=== PATIENT | male | born 1980 | race Caucasian/White ===

== ENCOUNTER 2023-12-09 04:18 | Emergency (ER) | payer BC, SELFPAY ==
[2023-12-09 04:21] VITALS: BP 149/80
[2023-12-09 04:53] VITALS: BP 121/87; BMI 24.1
--- NOTE | 2023-12-09 04:54 | EDRN ---
Pt accompanied by his fiance. Pt says he is here with symptoms of vertigo. Pt has dizziness for which he has been taking dramamine which he says helps. Last dose was 0300. Pt had a headache earlier. Pt does not have nausea now but vomited
yesterday and was unable to stand because of the dizziness. Pt has bilateral ear pressure, photophobia and chills. Pt denies cp, sob, abd pain. Pt has had problems with vertigo September, October and November which has kept him out of work.
[2023-12-09 05:00] VITALS: BP 110/80
[2023-12-09] MEDS: VALIUM INJECTION 2 MG IV (05:34)
[2023-12-09 05:39] LABS: % Basophils 0.5 % (0-2); % Eosinophils 4.3 % (0-6); % Immature Granulocytes 0.2 % (0-0.5); % Lymphocytes 32.4 % (20.5-51.1); % Monocytes 10.5 % (1.7-9.3); % Neutrophils 52.1 % (42.2-75.2); Absolute Eosinophils 0.3 10^3/uL (0-0.7); Absolute Lymphocytes 1.9 10^3/uL (1.2-3.4); Absolute Monocytes 0.6 10^3/uL (0.1-0.6); Hematocrit 41.9 % (39.0-52.0); Mean Corp Hgb Conc. 35.8 g/dL (33.0-37.0); Mean Corpuscular Hgb 30.9 pg (27.0-31.0); Mean Corpuscular Volume 86.2 fL (80.0-94.0); Mean Platelet Volume 8.8 fL (7.4-10.4); Nucleated Red Blood Cells % 0 % (-); Platelet Count 190 10^3/uL (130-400); Red Blood Cell Count 4.86 10^6/uL (4.70-6.10); Red Cell Dist. Width 12.3 % (11.5-14.5); White Blood Cell Count 5.8 10^3/uL (4.8-10.8)
[2023-12-09 06:00] VITALS: BP 126/87
[2023-12-09 06:07] LABS: ALT (SGPT) 19 U/L (0-50); AST (SGOT) 29 U/L (17-59); Albumin 3.9 g/dl (3.5-5.0); Alkaline Phosphatase 77 U/L (38-126); Blood Urea Nitrogen 16 mg/dl (9-20); Calcium 9.1 mg/dl (8.4-10.2); Carbon Dioxide 27 mmol/L (22-30); Chloride 102 mmol/L (98-107); Estimated Creatinine Clearance 117 ml/min; Glucose 101 mg/dl (70-99); Potassium 4.3 mmol/L (3.5-5.1); Sodium 136 mmol/L (135-145); Total Bilirubin 0.7 mg/dl (0.2-1.3); Total Protein 6.7 g/dl (6.3-8.2); eGFR > 60.00
--- NOTE | 2023-12-09 06:35 | ED.GENMED ---
History of Present Illness
General
Chief Complaint: Dizziness
Source: patient and spouse
Exam Limitations: none
Time Seen by Provider: 12/09/23 05:12
Nursing documentation reviewed up to this point in time: agreed with
Travel History
Have you had any contact with someone who has COVID-19?: No
Do you have any symptoms of coronavirus? Fever > 100 degrees, chills, cough, shortness of breath, sore throat, loss of taste or smell, muscle aches, or headache?: No
History of Present Illness
History of Present Illness:
43-year-old male with a past medical history of hypertension, vertigo who presents to the emergency department accompanied by his for evaluation of dizziness�'I have vertigo.' Patient says that he had onset of symptoms yesterday morning and
have been constant for the past 24 hours. He says that he has had room spinning sensation associated with intense nausea. He says his symptoms are much worse when he moves his head or tries to walk around. He tried meclizine without much relief.
Came to the emergency room for assessment. He does report he has had identical symptoms many times in the past. He has done vestibular rehab and has had success with Titus maneuver in the past but says that he is too symptomatic to try this at
present. He does state he has had some fullness in his ears bilaterally over the past few days he thinks related to allergies. He denies any focal weakness or numbness in his extremities, change in speech, or any other neurologic complaints.
Denies any fall or head trauma.
Past History
Past History
ED Past Medical History: Psychiatric and Other (Multiple concussions)
ED Past Surgical History: None
Social History
Personal:
Living: with family
Employment: Employed
Review of Systems
Review of Systems
All Other Systems: ROS reviewed and negative except as documented in HPI and ROS
Constitutional: Denies fever or chills
EENT: Reports other (Congestion); Denies sore throat
Respiratory: Denies cough or trouble breathing
Cardiac: Denies chest pain or palpitations
ABD/GI: Reports nausea; Denies abdominal pain or vomiting
: Denies flank pain
Musculoskeletal: Denies neck pain or back pain
Neurological: Reports dizzy; Denies headache, weakness or numbness
Phy Exam
Physical Exam
Physical Exam:
General: Awake, alert, oriented x3; no acute distress
Head: Normocephalic, atraumatic
Eyes: Conjunctiva normal, EOMI�he does have rightward fatigable nystagmus, no leftward nystagmus, no vertical or rotary nystagmus
Ears: TMs clear bilaterally
Throat: Airway intact, handling secretions
Neck: Trachea midline, supple without meningismus
Lungs: Clear to auscultation bilaterally, no wheezing, rales, rhonchi
Heart: Regular rate and rhythm, no murmurs, gallops, or rubs
Abd: Soft, non distended, nontender
Neuro: Cranial nerves intact 2 through 12, speech fluent without dysarthria or aphasia, no limb ataxia, motor and sensory function intact and symmetric upper and lower extremities
Skin: no rash
Extremities: No edema in extremities, warm and well-perfused
Scores
Heart Failure Risk
Heart Failure Risk Score: Not Applicable
Heart Score for Chest Pain Patients
STEMI patient?: Not applicable
Withdrawal Assessment of Alcohol
Withdrawal Assessment Completed?: Not applicable
Course
Orders/Labs/Results
Orders:
Orders
12/09/23 05:25
Electrocardiogram (*1) Urgent
Reason for Study: Vertigo / Dizzy
EKG- Treatment ONCE
diazePAM [Valium Injection] 2 mg IV NOW STA
12/09/23 05:31
Complete Blood Count/With Diff Urgent
Comprehensive Metabolic Panel Urgent
Abnormal Lab Results
12/09/23
05:31
Monocytes % 10.5 H %
(1.7-9.3)
Glucose 101 H mg/dl
(70-99)
12/09/23 05:31
12/09/23 05:31
Vital Signs
Initial and Last Documented VS:
Initial Vital Signs
Temp Pulse Resp BP Pulse Ox
36.6 C 75 16 149/80 97
12/09/23 04:21 12/09/23 04:21 12/09/23 04:21 12/09/23 04:21 12/09/23 04:21
Last Documented Vital Signs
Temp Pulse Resp BP Pulse Ox
36.6 C 68 12 126/87 97
12/09/23 04:21 12/09/23 06:00 12/09/23 06:00 12/09/23 06:00 12/09/23 04:21
MDM/Problems Addressed
Differential Diagnosis Includes:
History and exam consistent with peripheral vertigo with differential including but not limited to BPPV, M�ni�re's disease, labyrinthitis
MDM/Problems Addressed:
43-year-old male presents to the emergency room for evaluation of vertiginous symptoms over the past 24 hours similar to prior episodes of vertigo. Did not have significant improvement with meclizine and so he came to the emergency room for
assessment. Mildly hypertensive in triage normalized by my assessment, rest of vitals normal. Exam as above. He has no other neurologic signs or symptoms to suggest central vertigo and has unidirectional nystagmus consistent with vertigo.
Furthermore he has had some fullness in his ears and congestion over the past few days which likely serves as a trigger. Will check basic labs and an EKG. Will treat symptomatically with Valium. Monitor closely reassess after the above.
Labs reviewed: CBC and CMP unremarkable. EKG sinus rhythm. Clinical reassessment after Valium patient with significant improvement. He was able to ambulate around the room with only very mild symptoms. I think he is stable for discharge at this
point in time. Will prescribe some Valium short-term for symptom relief beyond meclizine. Will also prescribe some Flonase for his recent congestion and ear fullness. Will refer to ENT for follow-up. He feels comfortable with this plan. Spoke
about return precautions all questions answered.
Acute Exacerbation and/or Progression of Chronic Illness:
Acutely hypertensive resolved without intervention continue to monitor but no additional antihypertensive indicated at present
Acute Exacerbation and/or Progression of Chronic Illness: HTN
*Pulse Oximetry
Patient hypoxic: no
*EKG
Interpreted by ED Provider?: Yes
Heart Rate: 67
Rate: normal
Rhythm: sinus
[place]: normal axis
Interval: normal interval
QRS Pattern: normal QRS
Ischemia: no ischemia
*Critical Care Note
Total Time (30-74mins, 75-104mins- exclusive of procedures): Not Applicable
Data Reviewed
Source: patient and spouse
ED Attending Note
-
Portions of this chart may have been created with voice recognition software.� Occasional wrong word or��sound alike� substitutions may have occurred due to the inherent limitations of voice recognition software.
Discharge Plan
Departure
Patient Disposition: Home (Routine Discharge)
Date of Disposition: 12/09/23
Time of Disposition: 06:30
Patient with high blood pressure during this ER visit?: Yes
Discharge Problem:
Vertigo
Instructions: Vertigo (a Type of Dizziness) (DC)
Prescriptions:
New
diazepam [Valium] 2 mg tablet
2 mg PO TID PRN (Reason: dizziness) Qty: 10 0RF
fluticasone propionate [Flonase Allergy Relief] 50 mcg/actuation spray,suspension
1 spray intranasal DAILY Qty: 16 0RF
No Action
losartan 50 mg Tablet
50 mg PO DAILY
escitalopram oxalate [Lexapro] 20 mg Tablet
20 mg PO DAILY
Referrals:
Iron Oconnor MD [Active] - Call in 1-3 days for appt (ENT)
Kayla Sanon MD [Family Provider] - Follow up in 5-7 days
Activity Restrictions/Additional Instructions:
Thank you for visiting the Emergency Department at [facility].
1. Please schedule a follow up appointment as directed. Call first thing tomorrow morning to make an appointment.
2. If indicated, please take your medications as instructed and indicated on discharge paperwork.
3. If any of your symptoms do not improve, or persist, or become more severe within 6-12 hours, please return to the emergency department for further care.
4. Please return to the emergency department if you develop a headache, neck pain/stiffness, fever greater than 100.4F, chest pain, shortness of breath, persistent nausea, vomiting, slurred speech, difficulty walking, numbness/tingling, weakness,
signs of infection or any other symptoms that are worrisome to you.
Please call [phone] if you have any questions.
Interventions
Interventions:
*Risk Screen - Suicide Last Done: 12/09/23 04:21
*General Assessment Last Done: 12/09/23 04:21
*Neglect/Abuse Screening Last Done: 12/09/23 04:21
*ED COVID-19 Vaccine History Last Done: 12/09/23 04:53
ED- Neurological Assessment Last Done: 12/09/23 04:53
ED- Cardiac Assessment Last Done: 12/09/23 04:53
Discharge Date and Time
Print Language: NICARAGUAN
== END 2023-12-09 06:44 | disposition home or self-care (01) ==
LOC: EMR 04:18
PROVIDERS: EMERGENCY PHYSICIAN Emergency Medicine; FAMILY PHYSICIAN Student in an Organized Health Care Education/Training Program
DX: R42 Dizziness and giddiness (principal); I10 Essential (primary) hypertension
CPT/HCPCS: 99283; 96374; 80053; 85025; 93005

== ENCOUNTER 2024-02-01 05:06 | Emergency (ER) | payer BC, SELFPAY ==
[2024-02-01 05:09] VITALS: BP 161/111
[2024-02-01 05:20] LABS: Glucose - Point of Care 128 mg/dl (70-99)
[2024-02-01 05:37] VITALS: BP 146/110
[2024-02-01 05:48] LABS: % Basophils 0.5 % (0-2); % Eosinophils 2.2 % (0-6); % Immature Granulocytes 0.4 % (0-0.5); % Lymphocytes 14.1 % (20.5-51.1); % Monocytes 8.3 % (1.7-9.3); % Neutrophils 74.5 % (42.2-75.2); Absolute Basophils 0.1 10^3/uL (0-0.2); Absolute Eosinophils 0.2 10^3/uL (0-0.7); Absolute Lymphocytes 1.6 10^3/uL (1.2-3.4); Absolute Monocytes 0.9 10^3/uL (0.1-0.6); Absolute Neutrophils 8.2 10^3/uL (1.4-6.5); Hematocrit 45.1 % (39.0-52.0); Hemoglobin 15.7 g/dL (13.0-18.0); Mean Corp Hgb Conc. 34.8 g/dL (33.0-37.0); Mean Corpuscular Hgb 30.5 pg (27.0-31.0); Mean Corpuscular Volume 87.7 fL (80.0-94.0); Mean Platelet Volume 9.3 fL (7.4-10.4); Nucleated Red Blood Cells % 0 % (-); Platelet Count 235 10^3/uL (130-400); Red Blood Cell Count 5.14 10^6/uL (4.70-6.10); Red Cell Dist. Width 12.1 % (11.5-14.5); White Blood Cell Count 11.1 10^3/uL (4.8-10.8)
[2024-02-01 06:00] VITALS: BP 146/98
[2024-02-01 06:07] LABS: ALT (SGPT) 23 U/L (0-50); AST (SGOT) 33 U/L (17-59); Albumin 4.7 g/dl (3.5-5.0); Alkaline Phosphatase 79 U/L (38-126); Blood Urea Nitrogen 14 mg/dl (9-20); Calcium 9.7 mg/dl (8.4-10.2); Carbon Dioxide 28 mmol/L (22-30); Chloride 99 mmol/L (98-107); Glucose 128 mg/dl (70-99); Potassium 3.7 mmol/L (3.5-5.1); Sodium 137 mmol/L (135-145); Total Bilirubin 0.4 mg/dl (0.2-1.3); Total Protein 7.6 g/dl (6.3-8.2); eGFR > 60.00
--- NOTE | 2024-02-01 06:38 | ED.GENMED ---
History of Present Illness
General
Chief Complaint: Fainting/Passed Out
Source: patient
Exam Limitations: none
Time Seen by Provider: 02/01/24 06:03
Travel History
Have you had any contact with someone who has COVID-19?: No
Do you have any symptoms of coronavirus? Fever > 100 degrees, chills, cough, shortness of breath, sore throat, loss of taste or smell, muscle aches, or headache?: No
History of Present Illness
History of Present Illness:
This is a 43yo male who presents after he passed out. Patient and significant other state he was extremely hot at home. He was not diaphoretic but he felt his arms or tingling. Patient denies associate chest pain or palpitations. Does have a
history in the past of having vertigo and had been tested for M�ni�re's disease. Patient later admits that he was up around 1 AM to 2 AM doing cocaine. Patient does admit he does it sort of frequently because he works a lot of hours. He also
drinks about 3 energy drinks a day. Patient currently feels generally weak and lightheaded and has a mild headache. Significant other states she did hear him fall. No vomiting. No abdominal pain. No vision changes. Patient does state that he
does often get dizzy when he moves around. He has seen PT in the past and was scheduled to see ENT
Past History
Past History
ED Past Medical History: HTN, Psychiatric and Other (Multiple concussions)
ED Past Surgical History: None
Social History
Tobacco: Smoker
Drug: Marijuana and Cocaine
Employment: Employed
Phy Exam
Physical Exam
Physical Exam:
CONSTITUTIONAL Patient alert and oriented to person, place and time. Well-appearing. Vital signs reviewed.
HEAD atraumatic, normocephalic.
EYES eyelids normal to inspection, Pupils equally round and reactive to light, Extraocular muscles intact, Conjunctiva normal, Sclera normal.
NECK normal range of motion, Trachea midline, no jugular venous distention.
RESPIRATORY CHEST No respiratory distress noted, Chest expansion equal, Bilateral breath sounds clear.
CARDIOVASCULAR regular rate and rhythm, Heart sounds normal.
ABDOMEN abdomen nontender, Bowel sounds normal. No distention.
BACK normal inspection, no obvious deformities
UPPER EXTREMITY range of motion normal, Motor strength normal, no cyanosis, no edema.
LOWER EXTREMITY range of motion normal, Motor strength normal, no cyanosis, no edema.
NEURO Speech normal, No focal motor deficits, Dewayne coma scale 15, Memory normal, Cranial Nerves intact to screening exam. No pronator drift. Normal [id number]
SKIN skin warm, dry, and normal in color.
PSYCHIATRIC patient oriented to person place and time, Normal affect.
Course
Orders/Labs/Results
Orders:
Orders
02/01/24 05:22
ECG [Electrocardiogram (*1)] Urgent
Reason for Study: Syncope
EKG- Treatment ONCE
02/01/24 05:38
Complete Blood Count/With Diff Urgent
Comprehensive Metabolic Panel Urgent
02/01/24 06:33
CT Head W/o Iv Contrast Urgent
Comment:
Reason For Exam: fall, dizzy, MISTRY
02/01/24 06:35
0.9% Sodium Chloride 1000 ml [Nss] 1,000 ml IV BOLUS
02/01/24 06:43
Troponin I Urgent
Abnormal Lab Results
02/01/24 02/01/24
05:19 05:38
WBC 11.1 H 10^3/uL
(4.8-10.8)
Absolute Neuts (auto) 8.2 H 10^3/uL
(1.4-6.5)
Absolute Monos (auto) 0.9 H 10^3/uL
(0.1-0.6)
Lymphocytes % 14.1 L %
(20.5-51.1)
Glucose 128 H mg/dl
(70-99)
POC Glucose 128 H mg/dl
(70-99)
02/01/24 05:38
02/01/24 05:38
Vital Signs
Initial and Last Documented VS:
Initial Vital Signs
Temp Pulse Resp BP Pulse Ox
98.4 F 106 16 161/111 99
02/01/24 05:09 02/01/24 05:09 02/01/24 05:09 02/01/24 05:09 02/01/24 05:09
Last Documented Vital Signs
Temp Pulse Resp BP Pulse Ox
98.4 F 72 15 133/76 99
02/01/24 05:09 02/01/24 07:00 02/01/24 07:00 02/01/24 07:00 02/01/24 07:00
MDM/Problems Addressed
MDM/Problems Addressed:
Cocaine abuse, syncope, vertigo
*Radiology
Radiology exam reviewed: preliminary read by ED provider (no obvious ICH) and radiology read reviewed
*Pulse Oximetry
Patient hypoxic: no
*EKG
Interpreted by ED Provider?: Yes
Interpretation: normal
Rate: normal
Rhythm: sinus
[place]: normal axis
Ischemia: no ischemia
*Housing Management Representative Interpretation
Rate: normal
Interpretation: normal
Rhythm: sinus
*Critical Care Note
Total Time (30-74mins, 75-104mins- exclusive of procedures): Not Applicable
Data Reviewed
Source: patient and other (significant other)
Further Testing Considered But Not Given:
considered CTA but no PE risks
Patient Management
Escalation/DeEscalation of care consider admission/obs:
Patient appears well. Nonfocal exam. Does have a longstanding history of vertigo and had scheduled follow-up studies after seeing ENT that had not finished yet. I did encourage these follow-up studies. In addition I encouraged him cocaine use.
I also encouraged the avoidance of excessive use. Patient does agree to have follow-up and to limit use of both. Blood pressure improved over time. CT negative. Okay for discharge
ED Attending Note
-
Portions of this chart may have been created with voice recognition software.� Occasional wrong word or��sound alike� substitutions may have occurred due to the inherent limitations of voice recognition software.
Discharge Plan
Departure
Patient Disposition: Home (Routine Discharge)
Date of Disposition: 02/01/24
Time of Disposition: 08:20
Patient with high blood pressure during this ER visit?: No
Discharge Problem:
Syncope
Instructions: Syncope (Fainting) (DC)
Prescriptions:
No Action
losartan 50 mg Tablet
50 mg PO DAILY
escitalopram oxalate [Lexapro] 20 mg Tablet
20 mg PO DAILY
fluticasone propionate [Flonase Allergy Relief] 50 mcg/actuation spray,suspension
1 spray intranasal PRN PRN (Reason: allergies)
Referrals:
NONE,* [Family Provider] -
Stand Alone Forms: Return to Work
Activity Restrictions/Additional Instructions:
Please refrain from substance use. Please drink plenty of fluids and avoid excessive caffeine use. Return immediately for chest pain, shortness of breath, palpitations, passing out episode, weakness of any kind or any other concerns.
Interventions
Interventions:
*Risk Screen - Suicide Last Done: 02/01/24 05:44
*General Assessment Last Done: 02/01/24 05:44
*Neglect/Abuse Screening Last Done: 02/01/24 05:44
*ED COVID-19 Vaccine History Last Done: 02/01/24 05:44
ED- Cardiac Assessment Last Done: 02/01/24 06:00
ED- Neurological Assessment Last Done: 02/01/24 06:00
Discharge Date and Time
Print Language: TAJIK
[2024-02-01] MEDS: NSS 1000 IV (06:46)
[2024-02-01 07:00] VITALS: BP 133/76
[2024-02-01 07:20] LABS: Troponin I < 0.012 ng/ml
[2024-02-01 08:09] VITALS: BP 133/89
== END 2024-02-01 08:32 | disposition home or self-care (01) ==
LOC: EMR 05:06
PROVIDERS: Emergency Medicine; EMERGENCY PHYSICIAN Emergency Medicine
DX: R55 Syncope and collapse (principal); R53.1 Weakness; R51.9 Headache, unspecified; W19.XXXA Unspecified fall, initial encounter; I10 Essential (primary) hypertension; F14.90 Cocaine use, unspecified, uncomplicated; F17.200 Nicotine dependence, unspecified, uncomplicated; Z87.820 Personal history of traumatic brain injury; Z88.1 Allergy status to other antibiotic agents
CPT/HCPCS: 99284; 96360; 70450; 80053; 82962; 84484; 85025; 93005

== ENCOUNTER 2024-02-12 16:56 | Emergency (ER) | payer BC, SELFPAY ==
[2024-02-12 17:03] VITALS: BP 140/92
[2024-02-12 20:07] LABS: Urine Albumin Negative (Neg - Trace); Urine Bilirubin Negative (Negative); Urine Character Clear (Clear); Urine Color Yellow; Urine Glucose Negative (Negative); Urine Ketone Negative (Negative); Urine Leukocyte Trace (Negative); Urine Nitrite Negative (Negative); Urine Occult Blood Negative (Negative); Urine Urobilinogen Negative (Neg - 1+)
--- NOTE | 2024-02-12 20:17 | ED.GENMED ---
History of Present Illness
General
Chief Complaint: Male Genito-Urinary Symptoms
Time Seen by Provider: 02/12/24 18:42
Travel History
Have you had any contact with someone who has COVID-19?: No
Do you have any symptoms of coronavirus? Fever > 100 degrees, chills, cough, shortness of breath, sore throat, loss of taste or smell, muscle aches, or headache?: No
History of Present Illness
History of Present Illness:
43-year-old male without significant past medical history presenting to the emergency department for testicular pain, left-sided. Patient notes that he has had intermittent testicular pain for months to years, however was having sexual intercourse
with his partner, worsened a few days ago with increased swelling to left testicle. Reported pain upon urination. He was concerned for potential hernia. He has been able to urinate without difficulty. Has been using OTC medications for pain.
Denies any urologic follow-up in the past. Denies any abdominal pain, chest pain, difficulty breathing. Reports subjective chills without recorded fever. Denies abnormal discharge or concern for STD. Denies any direct trauma or injury to the
testicle. Denies additional acute medical complaints.
Past History
Past History
ED Past Medical History: HTN, Psychiatric and Other (Multiple concussions)
ED Past Surgical History: None
Social History
Tobacco: Smoker
Drug: Marijuana and Cocaine
Personal:
Living: with family
Employment: Employed
Phy Exam
Physical Exam
Physical Exam:
GENERAL: Alert , in no apparent distress
EYE: pupils equal and reactive
NECK: Supple, no significant adenopathy.
ENT: o/p clr, mmm.
CARDIAC: Regular rate
LUNGS: No respiratory distress
ABDOMEN: Soft, without focal tenderness, no r/g, no cvat. No palpation of any hernia
: Normal appearance to testicles bilaterally without any swelling. No erythema or warmth. Normal lie to the testicles. Mild tenderness to the left testicle region. No palpation of inguinal hernia
NEUROLOGICAL: Alert and oriented, no focal neuro deficits
SKIN: Warm and dry, skin intact.
MUSCULOSKELETAL: No edema, well perfused.
PSYCH: Normal and appropriate interaction.
Course
Orders/Labs/Results
Orders:
Orders
02/12/24 17:07
US Scrotum Urgent
Comment:
Reason For Exam: left testicle pain/swelling
02/12/24 19:59
Urine Culture Reflexed from UA [Urinalysis Reflex To Culture] Urgent
Date Specimen was Collected: 02/12/24
Time Specimen was Collected: 18:33
Urine Microscopic Reflex Cult Urgent
Abnormal Lab Results
02/12/24
19:59
Leukocyte Esterase Rfl Trace A
(Negative)
Vital Signs
Initial and Last Documented VS:
Initial Vital Signs
Temp Pulse Resp BP Pulse Ox
98.1 F 103 20 140/92 96
02/12/24 17:03 02/12/24 17:03 02/12/24 17:03 02/12/24 17:03 02/12/24 17:03
Last Documented Vital Signs
Temp Pulse Resp BP Pulse Ox
98.1 F 103 20 140/92 96
02/12/24 17:03 02/12/24 17:03 02/12/24 17:03 02/12/24 17:03 02/12/24 17:03
MDM/Problems Addressed
MDM/Problems Addressed:
43-year-old male presenting for left-sided testicular pain. Vital signs on arrival are normal.
On exam, patient well-appearing, no acute distress or discomfort. Patient had ultrasound of the scrotum completed prior to my assessment, shows varicocele without any abnormal blood flow to the testicles. For this reason, without concern for
torsion. No sign of epididymitis or orchitis. Suspect discomfort from possible varicocele. No palpation of any hernia. No signs of infection or concern for abscess. Will obtain urinalysis to ensure no UTI.
20:20 - Urine without sign of infection. At this time feel stable for discharge. Given duration of symptoms, advised outpatient urologic follow-up. Return precautions discussed and patient verbalized understanding
*Critical Care Note
Total Time (30-74mins, 75-104mins- exclusive of procedures): Not Applicable
ED Attending Note
-
Portions of this chart may have been created with voice recognition software.� Occasional wrong word or��sound alike� substitutions may have occurred due to the inherent limitations of voice recognition software.
Discharge Plan
Departure
Prescriptions:
No Action
losartan 50 mg Tablet
50 mg PO DAILY
escitalopram oxalate [Lexapro] 20 mg Tablet
20 mg PO DAILY
fluticasone propionate [Flonase Allergy Relief] 50 mcg/actuation spray,suspension
1 spray intranasal PRN PRN (Reason: allergies)
Referrals:
Lewis Gaines MD [Family Provider] -
Interventions
Interventions:
*Risk Screen - Suicide Last Done: 02/12/24 17:03
*General Assessment Last Done: 02/12/24 17:03
*Neglect/Abuse Screening Last Done: 02/12/24 17:03
Discharge Date and Time
Print Language: MAORI
[2024-02-12 20:32] LABS: Urine Squamous Cell 0-2 /LPF (Few)
[2024-02-12 20:33] LABS: Urine Calcium Oxalate Crystals Present; Urine Red Blood Cell 0-2 /HPF (0-2); Urine White Cell 0-2 /HPF (0-5)
[2024-02-12 20:34] LABS: Urine Bacteria Many (Negative); Urine Hyaline Cast 0-2 /LPF (0-2)
[2024-02-12 20:47] VITALS: BP 126/82
== END 2024-02-12 20:47 | disposition home or self-care (01) ==
LOC: EMR 16:56
PROVIDERS: EMERGENCY PHYSICIAN Student in an Organized Health Care Education/Training Program; FAMILY PHYSICIAN Family Medicine
DX: N50.812 Left testicular pain (principal); R68.83 Chills (without fever); I86.1 Scrotal varices; I10 Essential (primary) hypertension; F17.200 Nicotine dependence, unspecified, uncomplicated; Z87.820 Personal history of traumatic brain injury; Z88.1 Allergy status to other antibiotic agents
CPT/HCPCS: 99284; 76870; 81003; 81015; 87086; 93976

== ENCOUNTER 2024-09-19 10:08 | Emergency (ER) | payer BC, SELFPAY ==
[2024-09-19 10:10] VITALS: BP 164/118
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
[2024-09-19 10:58] VITALS: BP 141/95
[2024-09-19 11:10] LABS: % Basophils 0.4 % (0-2); % Eosinophils 0.2 % (0-6); % Immature Granulocytes 0.6 % (0-0.5); % Lymphocytes 9.3 % (20.5-51.1); % Monocytes 6.2 % (1.7-9.3); % Neutrophils 83.3 % (42.2-75.2); Absolute Basophils 0.1 10^3/uL (0-0.2); Absolute Immature Granulocytes 0.1 10^3/uL (0-0.05); Absolute Lymphocytes 1.1 10^3/uL (1.2-3.4); Absolute Monocytes 0.7 10^3/uL (0.1-0.6); Hematocrit 48.2 % (39.0-52.0); Hemoglobin 17.2 g/dL (13.0-18.0); Mean Corp Hgb Conc. 35.7 g/dL (33.0-37.0); Mean Corpuscular Hgb 30.9 pg (27.0-31.0); Mean Corpuscular Volume 86.5 fL (80.0-94.0); Nucleated Red Blood Cells % 0 % (-); Platelet Count 264 10^3/uL (130-400); Red Blood Cell Count 5.57 10^6/uL (4.70-6.10); Red Cell Dist. Width 11.9 % (11.5-14.5)
[2024-09-19 11:21] LABS: ALT (SGPT) 21 U/L (0-50); AST (SGOT) 28 U/L (17-59); Alkaline Phosphatase 66 U/L (38-126); Blood Urea Nitrogen 17 mg/dl (9-20); Calcium 10.1 mg/dl (8.4-10.2); Carbon Dioxide 30 mmol/L (22-30); Chloride 97 mmol/L (98-107); Glucose 90 mg/dl (70-99); Potassium 4.2 mmol/L (3.5-5.1); Sodium 138 mmol/L (135-145); Total Bilirubin 0.6 mg/dl (0.2-1.3); eGFR > 60.00
[2024-09-19 11:33] LABS: Amphetamines Positive (Negative); Barbiturates Negative (Negative); Benzodiazepines Negative (Negative); Buprenorphine Negative (Negative); Cocaine Positive (Negative); Marijuana Negative (Negative); Methadone Negative (Negative); Methamphetamines Positive (Negative); Opiates Negative (Negative); Phencyclidine Negative (Negative); Tricyclic Antidepressants Negative (Negative)
[2024-09-19 11:52] LABS: Fentanyl, Urine Negative (Negative)
[2024-09-19 15:22] VITALS: BP 149/98; BMI 23.5
== END 2024-09-19 16:56 ==
LOC: EMR 10:08
PROVIDERS: Physician Assistant Medical; EMERGENCY PHYSICIAN Emergency Medicine; FAMILY PHYSICIAN Family Medicine
DX: R45.851 Suicidal ideations (principal); F19.10 Other psychoactive substance abuse, uncomplicated; F32.A Depression, unspecified; I10 Essential (primary) hypertension; F17.200 Nicotine dependence, unspecified, uncomplicated; Z91.51 Personal history of suicidal behavior
CPT/HCPCS: 99285; 80053; 80306; 80307; 85025; 93005